=== PATIENT | female | born 1955 | race Caucasian/White ===

== ENCOUNTER 2017-02-28 08:32 | Inpatient (IN) | payer BC ==
--- NOTE | 2017-02-28 08:43 | DR.DIZZY ---
HPI - Time seen Time seen: 08:39 - HPI Comment HPI Comment: PATIENT WAS UP 06:00 AM AND WAS FINE. THEN BELOW SYMTOMS STARTED. CURRENTLY. STILL HAVING DYSARTHRIA. DENIES FEVER. HISTORY MVP. NO HTN. - Complaint Chief Complaint Doctor Comments: DIZZINESS, DIFFICULTY SPEAKING, SLIGHT ATAXIA AND DECREASE DEPTH PERCEPTION SINCE 07:15 AM TODAY. - Nurses Notes Reviewed Nurses Notes Review: Yes - Source History Provided: Patient, Family Member - Mode of Arrival Mode of Arrival: Ambulatory - Timing Came on: Suddenly - Duration Duration: Constant Duration: Hours - Location of Weakness Weakness Location: None - Context Onset: With light exertion Does pt take pot. toxic medication?: No History of: None Stroke Symptoms: Ataxia, Dizziness. denies: Aphasia (DYSARTHRIA) - Severity Severity: Normal activity level - Modifying factors Worsens: Nothing - Associated signs and symptoms Associated Signs and Symptoms: Imbalance, Difficult Speech ROS - Review of Systems Constitutional: Weakness, Fatigue. negative: Chills, Diaphoresis, Fever, Malaise, Loss of Appetite Eyes: negative: Eye Pain, Blurred Vision, Tearing, Discharge, Photophobia, Diplopia ENTM: negative: Ear Pain, Nose Discharge, Nose Congestion, Throat Pain Respiratoy: No Symptoms Reported. negative: Productive Cough, Non-Productive Cough, Short of Breath, Wheezing, Hemoptysis Cardiovascular: No Symptoms Reported. negative: Chest Pain, Edema, Palpitations , Syncope Gastrointestinal/Abdominal: Abdominal Pain. negative: Constipation, Diarrhea, Nausea, Vomiting Genitourinary: No Symptoms Reported. negative: Dysuria, Frequency, Hematuria Neurological: Weakness, Dizziness, Speech Problem. negative: Headache Musculoskeletal: No Symptoms Reported. negative: Back Pain, Muscle Pain, Neck Pain, Neck Integumentary: No Symptoms Reported. negative: Change in Color Hematologic/Lymphatic: No Symptoms Reported Endocrine: No Symptoms Reported. negative: Flushing, Increased Thirst, Increased Urine Psychiatric: negative: Anxiety All Other Systems: Reviewed and Negative PE - Vital Signs Vitals: Temperature 97 F Pulse Rate [Right Brachial] 61 Pulse Rate 60 Respiratory Rate 16 Blood Pressure [Right Arm] 114/55 Blood Pressure 130/63 O2 Sat by Pulse Oximetry 98 - General Limitations: Other (DYSARTHRIA) General Appearance: Alert, Anxious, Other (NO ACUTE RESPIRATORY DISTRESS.) - Head Head Exam: Normal Inspection - Eyes Eye exam: PERRL, EOMI. negative: Scleral Icterus, Conjunctival Injection, Nystagmus, Miosis, Mydrasis, Periorbital Swelling, Periorbital Tenderness Pupils: Regular, Round: Bilateral, Reactive: Bilateral Sclera/Conjunctival: Normal Inspection: Bilateral - ENT ENT Exam: Normal External Ear Exam - Neck Neck Exam: Normal Inspection, Full ROM, Trachea Midline. negative: Tenderness, Meningismus, Lymphadenopathy, Thyromegaly - Chest Chest Inspection: Normal Inspection, Symmetric Chest Wall Rise. negative: Tenderness, Rash - Respiratory Respiratory Exam: Normal Lung Sounds Bilat. negative: Accessory Muscle Use, Chest Wall Tenderness, Respiratory Distress Respiratory Exam: Bilateral Rhonchi, Lower Rhonchi - Cardiovascular Cardiovascular Exam: Regular Rate, Normal Rhythm, Normal Heart Sounds, +S1, + S2. negative: Systolic Murmur, Diastolic Murmur, Rubs, Gallop, JVD, +S3, +S4 - Abdominal Exam Abdominal Exam: Normal Bowel Sounds, Soft. negative: Tenderness - Rectal Rectal Exam: Deferred - Extremeties Extremities Exam: Normal Inspection, Full ROM. negative: Tenderness, Edema - Back Back Exam: Normal Inspection, Full ROM. negative: Tenderness - Neurologic Neurological Exam: Alert, Oriented X3, CN II-XII Intact, Reflexes Normal. negative: Motor Sensory Deficit Patient Oriented To: Person, Place, Time Speech: Expressive Aphasia Cranial Nerve Exam: EOM Function (II, III, IV, ): Normal, Facial Sensation (V) : Normal, Facial Palsy (VII): Normal, Gag reflex (XI): Normal, Spinal Accessory Function (XI): Normal, Tongue Deviation: Normal Cerebellar Function: Finger to Nose: Normal, Heel to [place]: Normal Motor Strength - LUE: 5/5 Motor Strength - RUE: 5/5 Motor Strength - LLE: 5/5 Motor Strength - RLE: 5/5 Upper Motor Neuron Exam: Babinski Sign: Normal Sensory Exam Upper Extremity: Light Touch: Normal Sensory Exam Lower Extremity: Light Touch: Normal DTR: achilles tendon (L): 4+, achilles tendon (R): 4+, bicep (L): 4+, bicep (R) : 4+, Patellar (L): 4+, patellar (R): 4+ - Psychiatric Psychiatric Exam: Anxious - Skin Skin Exam: Normal Color [facility] - Additional Information Additional Information Obtained From: Family - Differential Diagnosis Differential Diagnosis: CVA, Myocardial Infarction (DYSARTHRIA), TIA Course - Treatment Treatment: SEE ORDERS. SEE CT AND MRI/MRA REPORT. - Consultation Consultation Comments: TELEMEDICINE ACTIVATED, DR. RICO, NEUROLOGIST EVALUATED PATIENT. SHE CAN STAY HERE OR GO TO THEIR ED IN [place]. PATIENT SAID SHE WILL STAY HERE IN [facility]. SPOKE WITH DR. JOHNSON FOR NEURO CONSULT. DR. ORTIZ WILL ADMIT PATIENT. - Education/Counseling Education/Counseling: Patient, Family, Education Educated On: Diagnosis ROR - Labs Reviewed Laboratory Results Reviewed?: Yes Result Diagrams: 02/28/17 08:52 02/28/17 08:52 Laboratory: WBC 5.1 X10^3/uL (3.6-10.0) 02/28/17 08:52 RBC 4.67 X10^6/uL (3.5-5.4) 02/28/17 08:52 Hgb 13.9 g/dL (12.0-16.0) 02/28/17 08:52 Hct 40.9 % (36.0-47.0) 02/28/17 08:52 MCV 87.7 fL (80.0-100.0) 02/28/17 08:52 MCH 29.9 pg (27.0-34.0) 02/28/17 08:52 MCHC 34.1 g/dL (33.0-35.0) 02/28/17 08:52 RDW 12.7 % (11.6-16.5) 02/28/17 08:52 Plt Count 220 X10^3/uL (150.0-450.0) 02/28/17 08:52 MPV 9.0 fL (7.4-11.0) 02/28/17 08:52 Neut % 53.8 % (42.0-75.0) 02/28/17 08:52 Lymph % 32.4 % (21.0-51.0) 02/28/17 08:52 Calloway % 9.3 % (0.0-13.0) 02/28/17 08:52 Eos % 3.0 % (0.9-2.9) H 02/28/17 08:52 Baso % 1.5 % (0.2-1.0) H 02/28/17 08:52 Neut # 2.7 x10^3/uL (2.2-4.8) 02/28/17 08:52 Lymph # 1.7 X10^3/uL (1.3-2.9) 02/28/17 08:52 [place]ay # 0.5 x10^3/uL (0.3-0.8) 02/28/17 08:52 Eos # 0.2 x10^3/uL (0.0-0.2) 02/28/17 08:52 Baso # 0.1 X10^3/uL (0.0-0.1) 02/28/17 08:52 Absolute Nucleated RBC 0.1 /100WBC 02/28/17 08:52 INR Target Range - 02/28/17 08:52 INR 1.00 (0.8-1.3) 02/28/17 08:52 PTT 29.8 SECONDS (22.9-36.5) 02/28/17 08:52 PTT Comment - 02/28/17 08:52 Fibrinogen 256 mg/dL (239-489) 02/28/17 08:52 Sodium 144 mmol/L (136-145) 02/28/17 08:52 Corrected Sodium TNP 02/28/17 08:52 Potassium 4.0 mmol/L (3.5-5.1) 02/28/17 08:52 Chloride 108 mmol/L (98-107) H 02/28/17 08:52 Carbon Dioxide 25.1 mmol/L (21-32) 02/28/17 08:52 BUN 13 mg/dL (7-18) 02/28/17 08:52 Creatinine 0.90 mg/dL (0.55-1.02) 02/28/17 08:52 Est GFR (MDRD) Af Amer > 60 (>60) 02/28/17 08:52 Est GFR (MDRD) Non-Af > 60 (>60) 02/28/17 08:52 Glucose 98 mg/dL (65-99) 02/28/17 08:52 Calcium 8.9 mg/dL (8.5-10.1) 02/28/17 08:52 Corrected Calcium TNP 02/28/17 08:52 Total Bilirubin 0.40 mg/dL (0.2-1.0) 02/28/17 08:52 AST 22 Units/L (15-37) 02/28/17 08:52 ALT 29 Units/L (12-78) 02/28/17 08:52 Alkaline Phosphatase 41 Units/L (46-116) L 02/28/17 08:52 Creatine Kinase 70 Units/L (26-192) 02/28/17 21:26 CK-MB (CK-2) < 1.0 ng/mL (0-4.0) 02/28/17 21:26 CK/CKMB % Calc 1.4 % (<4) 02/28/17 21:26 Troponin I < 0.02 ng/mL (0-1.5) 02/28/17 21:26 B-Natriuretic Peptide 96.5 pg/mL (0-79) H 02/28/17 08:52 Total Protein 7.3 g/dL (6.4-8.2) 02/28/17 08:52 Albumin 4.1 g/dL (3.4-5.0) 02/28/17 08:52 Globulin 3.2 g/dL (2.5-4.5) 02/28/17 08:52 Albumin/Globulin Ratio 1.3 Ratio (1.1-2.1) 02/28/17 08:52 Triglycerides 159 mg/dL (0-150) H 02/28/17 08:52 Cholesterol 207 mg/dL (0-200) H 02/28/17 08:52 LDL Cholesterol, Calc 113 mg/dL (0-100) H 02/28/17 08:52 HDL Cholesterol 62 mg/dL (40-60) H 02/28/17 08:52 Cholesterol/HDL Ratio 3.3 (0.0-5.0) 02/28/17 08:52 Amylase 36 Units/L (25-115) 02/28/17 08:25 Lipase 93 Units/L (73-393) 02/28/17 08:25 Specimen Type Clean catch urine 02/28/17 09:31 Urine Color Straw (YELLOW) 02/28/17 09:31 Urine Appearance Clear (CLEAR) 02/28/17 09:31 Urine pH 7.0 (5.0 - 8.0) 02/28/17 09:31 Ur Specific [place] 1.005 (1.000-1.030) 02/28/17 09:31 Urine Protein Negative (NEGATIVE) 02/28/17 09:31 Urine Glucose (UA) Negative (NEGATIVE) 02/28/17 09:31 Urine Ketones Negative (NEGATIVE) 02/28/17 09:31 Urine Occult Blood Negative (NEGATIVE) 02/28/17 09:31 Urine Nitrite Negative (NEGATIVE) 02/28/17 09:31 Urine Bilirubin Negative (NEGATIVE) 02/28/17 09:31 Urine Urobilinogen Normal (NORMAL) 02/28/17 09:31 Ur Leukocyte Esterase Negative (NEGATIVE) 02/28/17 09:31 Urinalysis Comment QNS 02/28/17 09:31 - XRAY XRAY Interpreted by: Radiologist XRAY Findings: REPORT DISCUSS WITH PATIENT AND HER FAMILY. - EKG Rhythm: NSR (EKG NOTED) - Diagnosis Discharge Problem: Dysarthria, Basilar artery aneurysm TIA (transient ischemic attack) Qualifiers: Transient cerebral ischemia type: unspecified Qualified Code(s): G45.9 - Transient cerebral ischemic attack, unspecified - Discharge Plan Disposition: ADMITTED INPATIENT Condition: Stable - Follow ups/Referrals - Instructions
[2017-02-28 08:53] VITALS: BMI 23.0
--- NOTE | 2017-02-28 08:56 | CT ---
HISTORY: Dizzy, difficulty speaking, unsteady gait Study: CT brain without contrast Comparison: No priors Technique: Multiple axial images of the brain were obtained from the skull base to the vertex without administr ation of IV contrast. Coronal and sagittal images are also reviewed. Dose reduction techniques utili zed automatic exposure control. Findings: No acute intraparenchymal hemorrhage or mass can be identified. No extra-axial fluid collections ar e seen. No alteration in the attenuation of the brain parenchyma can be identified to suggest acute or subacute ischemic change. The ventricular system is symmetric and nondilated. The extracranial structures are grossly unremarkable. IMPRESSION: 1. No acute intracranial process can be identified. Reported By:
[2017-02-28 09:01] LABS: BASOPHILS # (AUTO) 0.1 X10^3/uL (0.0-0.1); BASOPHILS % (AUTO) 1.5 % (0.2-1.0); EOSINOPHILS # (AUTO) 0.2 x10^3/uL (0.0-0.2); HEMATOCRIT 40.9 % (36.0-47.0); HEMOGLOBIN 13.9 g/dL (12.0-16.0); LYMPHOCYTES # (AUTO) 1.7 X10^3/uL (1.3-2.9); LYMPHOCYTES % (AUTO) 32.4 % (21.0-51.0); MEAN CORPUSCULAR HEMOGLOBIN 29.9 pg (27.0-34.0); MEAN CORPUSCULAR HGB CONC 34.1 g/dL (33.0-35.0); MEAN CORPUSCULAR VOLUME 87.7 fL (80.0-100.0); MONOCYTES # (AUTO) 0.5 x10^3/uL (0.3-0.8); MONOCYTES % (AUTO) 9.3 % (0.0-13.0); NEUTROPHILS # (AUTO) 2.7 x10^3/uL (2.2-4.8); NEUTROPHILS % (AUTO) 53.8 % (42.0-75.0); PLATELET COUNT 220 X10^3/uL (150.0-450.0); RED BLOOD COUNT 4.67 X10^6/uL (3.5-5.4); RED CELL DISTRIBUTION WIDTH 12.7 % (11.6-16.5); WHITE BLOOD COUNT 5.1 X10^3/uL (3.6-10.0)
[2017-02-28] MEDS ORDERED: ASPIRIN 81 MG CHEWTAB ONE (09:04)
--- NOTE | 2017-02-28 09:05 | RAD ---
HISTORY: Chest pain. Study: Single-view chest. Comparison: None. Findings: The trachea is midline. The cardiac silhouette is within normal limits. The lungs are clear withou t focal infiltrate or effusion. The bony thorax is unremarkable. IMPRESSION: No acute cardiopulmonary disease. Reported By:
[2017-02-28] MEDS: ASPIRIN PO SCH (09:08)
[2017-02-28 09:25] LABS: B-TYPE NATRIURETIC PEPTIDE 96.5 pg/mL (0-79); CHOL/HDL RATIO 3.3 (0.0-5.0)
[2017-02-28 09:30] LABS: BLOOD UREA NITROGEN 13 mg/dL (7-18); CALCIUM 8.9 mg/dL (8.5-10.1); CARBON DIOXIDE 25.1 mmol/L (21-32); CHLORIDE 108 mmol/L (98-107); GLUCOSE 98 mg/dL (65-99); SODIUM 144 mmol/L (136-145); TROPONIN I < 0.02 ng/mL (0-1.5); eGFR BLACK RACES > 60 (>60); eGFR NON BLACK RACES > 60 (>60)
[2017-02-28 09:35] LABS: ALANINE AMINOTRANSFERASE 29 Units/L (12-78); ALBUMIN 4.1 g/dL (3.4-5.0); ALKALINE PHOSPHATASE 41 Units/L (46-116); ASPARTATE AMINO TRANSFERASE 22 Units/L (15-37); CKMB % 1.2 % (<4); CREATINE KINASE 83 Units/L (26-192); TOTAL PROTEIN 7.3 g/dL (6.4-8.2)
[2017-02-28] MEDS ORDERED: PEPCID 20 MG IV PREMIX* 20 MG/50 ML BAG IV ONE ×2 (10:14→12:18)
[2017-02-28 10:18] LABS: BILIRUBIN,URINE NEGATIVE (NEGATIVE); BLOOD/HEMOGLOBIN,URINE NEGATIVE (NEGATIVE); GLUCOSE, URINE NEGATIVE (NEGATIVE); KETONES,URINE NEGATIVE (NEGATIVE); LEUKOCYTE ESTERASE ,URINE NEGATIVE (NEGATIVE); NITRITES,URINE NEGATIVE (NEGATIVE); PROTEIN,URINE NEGATIVE (NEGATIVE); UROBILINOGEN,URINE NORMAL (NORMAL)
[2017-02-28 10:19] LABS: APPEARANCE,URINE CLEAR (CLEAR); COLOR,URINE STRAW (YELLOW)
--- NOTE | 2017-02-28 11:29 | MRI ---
STUDY: MRI OF THE BRAIN WITHOUT GADOLINIUM History: TIA. Dizziness. Difficulty speaking. Comparison: Head CT dated February 28, 2017. Technique: Multiplanar multi-sequence MRI of the brain was obtained utilizing standard departmental protocol. Sagittal and axial T1, axial T2, FLAIR, diffusion (DWI/ADC) images through the brain were performed. Findings: The sulci, cisterns, and ventricles are age appropriate. There is no evidence of acute ter ritorial infarction, hemorrhage, mass, mass effect or midline shift. There are no abnormal intra-axi al or extra-axial fluid collections. The major intracranial vascular flow voids are intact. IMPRESSION: 1. No evidence of acute intracranial abnormality. Reported By:
--- NOTE | 2017-02-28 11:34 | MRI ---
STUDY: MRA OF THE BRAIN HISTORY: TIA, dizziness, difficulty speaking. Comparison: Head CT from February 28, 2017. Technique: 3D [id number] imaging of the intracranial circulation was performed. Findings: 3D [id number] MRA examination shows normal flow related enhancement in the major intracranial ar teries. There is no evidence of hemodynamically significant stenosis. Note is made of a somewhat bul bous configuration of the basilar tip measuring 3 mm, possibly representing a small aneurysm. Both p osterior cerebral arteries and superior cerebellar arteries are incorporated within this structure. Posterior communicating arteries are not identified. The right vertebral artery is dominant. IMPRESSION: 1. Bulbous configuration of the basilar tip, possibly representing a 3 mm basilar tip aneurysm. Reported By:
--- NOTE | 2017-02-28 12:39 | VAS ---
HISTORY: Dizziness, TIA Study: Carotid sonogram Comparison: None Technique: Multiple pinto scale and color flow Doppler images of the right and left carotid arterial system were obtained. The vertebral arterial system was evaluated as well. Findings: Normal color flow Doppler is seen throughout the right and left carotid arterial system. No hemodyn amically significant stenosis is seen based on velocity criteria. The right and left vertebral anay genaro demonstrate antegrade flow. IMPRESSION: 1. No hemodynamically significant stenosis. Reported By:
[2017-02-28] MEDS ORDERED: NS 1/2 1000 ML IV 1,000 ML IV ONE (13:16)
[2017-02-28] MEDS ORDERED: LEVSIN/MAALOX/LIDOC VISC PO PRN (13:23)
[2017-02-28 13:39] LABS: AMYLASE 36 Units/L (25-115); LIPASE 93 Units/L (73-393)
[2017-02-28] MEDS: NS 1/2 1000 ML IV 1,000 ML IV SCH (13:42)
[2017-02-28] MEDS: PROTONIX INJ 40 MG VIAL IVP SCH (14:19)
[2017-02-28] MEDS: PLAVIX PO SCH (14:19)
[2017-02-28 16:05] LABS: CKMB % 1.6 % (<4); CREATINE KINASE 71 Units/L (26-192); CREATINE KINASE MB 1.1 ng/mL (0-4.0); TROPONIN I < 0.02 ng/mL (0-1.5)
--- NOTE | 2017-02-28 18:02 | DR.H&P ---
H&P - History & Physical for Day of: H&P Date: 02/28/17 - Chief Complaint Chief Complaint: sudden onset of weakness, impaired speech - Allergies Allergies/Adverse Reactions: Allergies Allergy/AdvReac Type Severity Reaction Status Date / Time No Known Drug Allergy Allergy Verified 02/28/17 08:39 - History of Present Illness History of Present Illness: 61 WF ER ADMIT AFTER PRESENTING WITH CO SUDDEN ONSET OF WEAKNESS, IMPAIRED SPEECH. PT STATES SHE HAD SEVERE EPIGASTRIC PAIN QUALITY CONTROL CHEMIST AND TOOK NEXIUM, GI COCKTAIL AND ZANTAC PRIOR TO ARRIVAL WITH SOME RELEIF IN ABOMDINAL PAIN. PT HAD CT HEAD IN ED NEGATIVE FOR ACUTE FINDINGS. PLAN TO ADMIT FOR EVALUATION OF TIA VS CVA, ADDITIONAL EVALUATION OF EPIGASTRIC PAIN. CTA CAROTIDS, MRI/MRA. ADMIT ICU, CARDIAC MONITORING - Past Medical History Past Medical History: Arthritis, GERD - Past Surgical History Surgical History: Hysterectomy, Other - Family History Family Medical History: Cancer - Social History Does patient currently use any type of tobacco product: No Have you used tobacco products in the last 12 months: No Type of Tobacco Use: None Does any household member use tobacco: No Alcohol Use: Rarely Drug Use: None - Medications Home Medications: Esomeprazole Magnesium [NEXIUM 40 MG *] 1 cap PO DAILY 02/28/17 [History Confirmed 02/28/17] Famotidine [Famotidine 20 mg] 1 tab PO BID 02/28/17 [History Confirmed 02/28/17] Gi Cocktail [LEVSIN/Maalox/Lidoc Visc (GI COCKTAIL) *] 15 ml PO Q4HR PRN [History Confirmed 02/28/17] Ranitidine HCl [Ranitidine [address]] 1 tab PO BID 02/28/17 [History Confirmed 02/28/17] - Review of Systems Constitutional: Weakness ENT: No Symptoms Reported Respiratory: No Symptoms Reported Cardiovascular: No Symptoms Reported Gastrointestinal: Abdominal Pain Genitourinary: No Symptoms Reported Musculoskeletal: Neck Pain Skin: No Symptoms Reported Neurological: Weakness, Change in Speech (IMPAIRED SPEECH ON ARRIVAL TO ED, RESOLVED ON ADMISSION TO ICU) - Physical Exam Vital Signs: Temperature 98 F Pulse Rate [Right Brachial] 59 Respiratory Rate 19 Blood Pressure [Right Arm] 98/46 O2 Sat by Pulse Oximetry 95 Oriented: Normal Eyes: Normal Ear: Normal Nose: Normal Throat: Normal Respiratory: Clear Throughout Cardiovascular: Normal : Normal Auscultation: Bowel Sounds: Normal Palpation: Normal Tenderness: RUQ, Epigastric Skin: Decreased Turgur Musculoskeletal: Tender (LOCALIZED C SPINE TENDERNESS) Psychiatric: Anxiety Speech Pattern: Clear, Appropriate - Assessment/Plan (1) TIA (transient ischemic attack) Qualifiers: Transient cerebral ischemia type: T Status: Acute Plan: CARDIAC MONITORING, BP AND LIPID CONTROL. FLP AM, MRI, MRA NO ACUTE CVA, . NEURO CHECKS, CAROTID US. REPEAT AM LABS (2) Weakness Status: Acute (3) Epigastric abdominal pain Status: Acute Plan: PPI, GI COCKTAIL, AMYLASE LIPASE. 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
--- NOTE | 2017-02-28 18:37 | DR.CONSULT ---
Consult - Consultation for Day of: Date: 02/28/17 - Chief Complaint Chief Complaint: Acute onset speech abnormality, slurred speech. - Allergies Allergies/Adverse Reactions: Allergies Allergy/AdvReac Type Severity Reaction Status Date / Time No Known Drug Allergy Allergy Verified 02/28/17 08:39 - History of Present Illness History of Present Illness: Patient is 61-year-old female who was seen and examined by neurology because of acute onset of difficulty with her speech and incoordination with the right hand. Patient was trying to say something but the words would not come out of her mouth. She also had difficulty with her right hand in reaching out to the objects. All these symptoms started around 11 :00 today in the lasted for more than an hour. Patient arrived at ER around this time. By the time she arrived at the ER there was some improvement in her symptoms but she still had some symptoms. Patients speech has markedly improved , her naming is intact. Her comprehension is also intact. She can repeat the words as well. Her strength in the right hand has also improved. Patient is not having any complaints at this point. She had an MRI of the brain at the hospital which did not show any acute ischemic insult. - Past Medical History Past Medical History: Arthritis, GERD - Past Surgical History Surgical History: Hysterectomy, Other - Family History Family Medical History: Cancer - Social History Does patient currently use any type of tobacco product: No Have you used tobacco products in the last 12 months: No Type of Tobacco Use: None Does any household member use tobacco: No Alcohol Use: Rarely Drug Use: None - Medications Home Medications: Esomeprazole Magnesium [NEXIUM 40 MG *] 1 cap PO DAILY 02/28/17 [History Confirmed 02/28/17] Famotidine [Famotidine 20 mg] 1 tab PO BID 02/28/17 [History Confirmed 02/28/17] Gi Cocktail [LEVSIN/Maalox/Lidoc Visc (GI COCKTAIL) *] 15 ml PO Q4HR PRN [History Confirmed 02/28/17] Ranitidine HCl [Ranitidine [address]] 1 tab PO BID 02/28/17 [History Confirmed 02/28/17] - Review of Systems Constitutional: No Symptoms Reported Eyes: No Symptoms Reported ENT: No Symptoms Reported Respiratory: No Symptoms Reported Cardiovascular: No Symptoms Reported Gastrointestinal: No Symptoms Reported Genitourinary: No Symptoms Reported Musculoskeletal: No Symptoms Reported Skin: No Symptoms Reported Neurological: See HPI - Physical Exam Vital Signs: Temperature 98 F Pulse Rate [Right Brachial] 61 Respiratory Rate 18 Blood Pressure [Right Arm] 97/48 O2 Sat by Pulse Oximetry 95 Oriented: Normal, Time, Person, Place Eyes: Normal Ear: Normal Nose: Normal Throat: Normal Respiratory: Clear Throughout Cardiovascular: Normal : Normal Auscultation: Bowel Sounds: Normal Palpation: Normal Tenderness: Normal Skin: Normal Musculoskeletal: Normal Psychiatric: Normal, Other (Neurological examination:cognitive status; patient is awake alert oriented in time place and person. Speech : it is fluent, naming is intact, comprehension is intact. Repetition is also intact. Cranial nerve examination: second cranial nerve: visual simpson are intact on confrontation. Third fourth and sixth: extraocular movements are full without any nystagmus. Pupils are 3.5 mm in size around equal and reactive to light. Fifth cranial nerve; Facial sensations are intact bilaterally. Seventh cranial nerve: facial symmetry is intact bilaterally.: Eighth cranial nerve:hearing is intact bilaterally.9-10th cranial nerve:palate is symmetrical bilaterally. 11th cranial nerve: shoulder shrug is equal and symmetrical bilaterally. 12th cranial nerve:tongue is in midline. Coordination: finger to nose rapid alternative movements are intact. Gait was not tested. Motor system examination: tone is normal, strength is 5 over 5 in upper and lower extremities equal and symmetrical. DTRs: +1 equal and symmetrical in upper and lower extremities. Plantars are flexor bilaterally. Sensory system examination : touch temperature, pinprick sensations are intact equally and symmetrically in upper and lower extremities.) Mood Description: Calm, Happy Affect: Normal Speech Pattern: Clear - Plan Plan: Patient was seen and examined because of signs and symptoms raising suspicion for TIA. At this point it appears that patient has cleared up. Her neurological examination is nonfocal. Her MRI of the brain did not show any sign of acute ischemic event. The MRA of the brain showed 3 mm aneurysm at the tip of the basilar artery. To clarify this we will do CT angiogram tomorrow. I counseled the patient on going [id number] exercises on a regular basis. I also counseled the patient on dietary modification, at night less in fact and more in fiber. I'm recommending 81 mg of aspirin daily. The rest of the stroke workup is in progress. We will follow-up.
[2017-02-28] MEDS: PEPCID 20 MG IV PREMIX* 20 MG/50 ML BAG IV SCH (20:01)
[2017-02-28] MEDS: NORCO 10/325 TAB PO PRN (21:42)
[2017-02-28 22:12] LABS: CKMB % 1.4 % (<4); CREATINE KINASE 70 Units/L (26-192); CREATINE KINASE MB < 1.0 ng/mL (0-4.0); TROPONIN I < 0.02 ng/mL (0-1.5)
[2017-02-28] MEDS ORDERED: RESTORIL CAP 15 MG PO PRN (23:45)
[2017-03-01 05:31] LABS: BASOPHILS % (AUTO) 0.8 % (0.2-1.0); EOSINOPHILS # (AUTO) 0.2 x10^3/uL (0.0-0.2); EOSINOPHILS % (AUTO) 3.9 % (0.9-2.9); HEMATOCRIT 38.1 % (36.0-47.0); HEMOGLOBIN 13.2 g/dL (12.0-16.0); LYMPHOCYTES # (AUTO) 2.4 X10^3/uL (1.3-2.9); MEAN CORPUSCULAR HEMOGLOBIN 30.5 pg (27.0-34.0); MEAN CORPUSCULAR HGB CONC 34.6 g/dL (33.0-35.0); MEAN PLATELET VOLUME 9.4 fL (7.4-11.0); MONOCYTES # (AUTO) 0.4 x10^3/uL (0.3-0.8); MONOCYTES % (AUTO) 7.3 % (0.0-13.0); NEUTROPHILS # (AUTO) 2.5 x10^3/uL (2.2-4.8); PLATELET COUNT 210 X10^3/uL (150.0-450.0); RED BLOOD COUNT 4.33 X10^6/uL (3.5-5.4); RED CELL DISTRIBUTION WIDTH 12.5 % (11.6-16.5); WHITE BLOOD COUNT 5.6 X10^3/uL (3.6-10.0)
[2017-03-01 05:46] LABS: ALANINE AMINOTRANSFERASE 27 Units/L (12-78); ALBUMIN 3.5 g/dL (3.4-5.0); ALKALINE PHOSPHATASE 42 Units/L (46-116); ASPARTATE AMINO TRANSFERASE 18 Units/L (15-37); BLOOD UREA NITROGEN 14 mg/dL (7-18); CALCIUM 8.6 mg/dL (8.5-10.1); CARBON DIOXIDE 24.1 mmol/L (21-32); CHLORIDE 109 mmol/L (98-107); CHOL/HDL RATIO 3.8 (0.0-5.0); CHOLESTEROL 178 mg/dL (0-200); CREATININE 1.05 mg/dL (0.55-1.02); GLUCOSE 98 mg/dL (65-99); HDL CHOLESTEROL 47 mg/dL (40-60); SODIUM 144 mmol/L (136-145); TOTAL PROTEIN 6.5 g/dL (6.4-8.2); TRIGLYCERIDES 167 mg/dL (0-150); eGFR BLACK RACES > 60 (>60); eGFR NON BLACK RACES 56 (>60)
--- NOTE | 2017-03-01 07:14 | US ---
HISTORY: Right upper quadrant pain , nausea, vomiting, epigastric pain Study: Right upper quadrant abdominal ultrasound Comparison: No priors Technique: Multiple pinto scale and color flow Doppler images of the right upper quadrant were obtain ed. Findings: The liver is normal in echotexture and size. No focal intraparenchymal mass or intrahepatic biliary ductal dilatation can be observed. The gallbladder fails to demonstrate evidence for cholelithiasi s or layering sludge. The common bile duct is unremarkable measuring 4 millimeters. No pericholecy stic fluid is seen. There is mild gallbladder wall thickening. The gallbladder wall measures 5 corie meters. The right kidney appears normal in size without focal parenchymal mass or nephrolithiasis. The righ t kidney measurers 4.2 x 6.2 x 8.2 centimeters. No hydronephrosis or perirenal fluid can be observe d. The pancreas is normal. IMPRESSION: Mild gallbladder wall thickening. No gallstone is seen. Remainder of the examination is unremarkabl e. Reported By:
[2017-03-01] MEDS: PROTONIX INJ 40 MG VIAL IVP SCH (09:04)
[2017-03-01] MEDS: ASPIRIN PO SCH (09:04)
[2017-03-01] MEDS: PEPCID 20 MG IV PREMIX* 20 MG/50 ML BAG IV SCH (09:04)
[2017-03-01] MEDS: PLAVIX PO SCH (09:05)
--- NOTE | 2017-03-01 11:46 | NM ---
HISTORY: Chest pain. Study: Nuclear medicine HIDA scan with ejection fraction Comparison: Gallbladder ultrasound from March 01, 2017. Technique: Multiple scintigraphic images of the abdomen were obtained the intravenous administration of 5.6 mCi of technetium labeled Choletec. Following distention of the gallbladder with radiotracer, 8 oz of Ensure was administered orally. A n estimated gallbladder ejection fraction was calculated based on the resulting physiologic response . Findings: Homogeneous uptake of radiotracer is seen throughout the liver. The intrabiliary ductal system is o bserved normally. The common hepatic and common bile duct are unremarkable with normal biliary-deepti l transit. The gallbladder is observed to fill normally. After the oral administration of Ensure, a gallbladder ejection fraction of 14.8% (normal > 35%) is observed. IMPRESSION: 1. Normal hepatobiliary imaging scan. 2. Abnormal gallbladder ejection fraction of 14.8%. Clinical correlation for cholecystitis or gallb ladder dyskinesia is recommended. Reported By:
[2017-03-01] MEDS: NORCO 10/325 TAB PO PRN (12:24)
[2017-03-01] MEDS ORDERED: NS 100 ML IV 100 ML IV ONE (12:28)
[2017-03-01] MEDS ORDERED: PREVNAR 13 IM ONE (16:20)
--- NOTE | 2017-03-01 16:20 | CT ---
CT ANGIOGRAPHY OF THE HEAD CLINICAL HISTORY: 61-year-old female with dizziness and difficulty speaking. COMPARISON: MR brain February 28, 2017. CT head February 28, 2017. TECHNIQUE: Multiple axial CT images were obtained from the skull base to the cranial vertex followi ng the uneventful intravenous administration contrast. MIP and 3D reformatted images of the [place] o f [facility] were obtained at an independent workstation. FINDINGS: Noncontrasted images demonstrate no evidence of abnormal intra- or extra-axial fluid colle ctions, midline shift, or mass effect. Pederson-white differentiation is maintained. The ventricular sy stem is normal in size and morphology. The basilar cisterns are normal. Post contrast images demonstrate no evidence of abnormal intracranial enhancement. Left dominant flakita tebral arterial system. The basilar artery gives off normal superior cerebellar and posterior cerebr al arteries. There are small caliber posterior communicating arteries bilaterally. The internal franz tid arteries are normal from their distal cervical segments to the carotid terminus. The middle cere bral arteries and anterior cerebral arteries are normal. There is a small caliber anterior communica ting artery. There is normal opacification of the major dural venous sinuses. IMPRESSION: Intact anterior and posterior circulations without dissection, major branch occlusion, aneurysm, or vascular malformation. Reported By:
[2017-03-01] MEDS: NS 1/2 1000 ML IV 1,000 ML IV SCH (17:06)
--- NOTE | 2017-03-01 18:26 | PCM.PROG ---
Progress Note - Progress Note for Day of Date: 03/01/17 - Subjective Subjective: Patient is doing fine. Her symptoms have subsided. She feels back to her normal self. She has no other complaints at this point. - Past Medical Family Social History Allergies: Allergies No Known Drug Allergy Allergy (Verified 02/28/17 08:39) - Review of Systems ROS: No change since H&P - Vital Signs and I&O's Vital Signs: Temperature 98.9 F Pulse Rate [Right Brachial] 63 Respiratory Rate 20 Blood Pressure [Right Arm] 100/60 O2 Sat by Pulse Oximetry 95 Intake and Output: Intake & Output 02/27/17 02/28/17 03/01/17 03/02/17 11:59 11:59 11:59 11:59 Intake Total 858 350 Output Total 500 Balance 358 350 - Physical Exam Oriented: Normal, Time, Person, Place Eyes: Normal Ear: Normal Nose: Normal Throat: Normal Cardiovascular: Normal : Normal Auscultation: Bowel Sounds: Normal Tenderness: Normal Skin: Normal Musculoskeletal: Normal Psychiatric: Normal, Other (Neurological examination:cognitive status; patient is awake alert oriented in time place and person. Speech : it is fluent, naming is intact, comprehension is intact. Repetition is also intact. Cranial nerve examination: second cranial nerve: visual simpson are intact on confrontation. Third fourth and sixth: extraocular movements are full without any nystagmus. Pupils are 3.5 mm in size around equal and reactive to light. Fifth cranial nerve; Facial sensations are intact bilaterally. Seventh cranial nerve: facial symmetry is intact bilaterally.: Eighth cranial nerve:hearing is intact bilaterally.9-10th cranial nerve:palate is symmetrical bilaterally. 11th cranial nerve: shoulder shrug is equal and symmetrical bilaterally. 12th cranial nerve:tongue is in midline. Coordination: finger to nose rapid alternative movements are intact. Gait was not tested. Motor system examination: tone is normal, strength is 5 over 5 in upper and lower extremities equal and symmetrical. DTRs: +1 equal and symmetrical in upper and lower extremities. Plantars are flexor bilaterally. Sensory system examination : touch temperature, pinprick sensations are intact equally and symmetrically in upper and lower extremities.) Mood Description: Calm Affect: Normal Speech Pattern: Clear, Appropriate - Laboratory and Diagnostics Result Diagrams: 03/01/17 03:30 03/01/17 03:30 Labs: Laboratory WBC 5.6 X10^3/uL (3.6-10.0) 03/01/17 03:30 RBC 4.33 X10^6/uL (3.5-5.4) 03/01/17 03:30 Hgb 13.2 g/dL (12.0-16.0) 03/01/17 03:30 Hct 38.1 % (36.0-47.0) 03/01/17 03:30 MCV 88.0 fL (80.0-100.0) 03/01/17 03:30 MCH 30.5 pg (27.0-34.0) 03/01/17 03:30 MCHC 34.6 g/dL (33.0-35.0) 03/01/17 03:30 RDW 12.5 % (11.6-16.5) 03/01/17 03:30 Plt Count 210 X10^3/uL (150.0-450.0) 03/01/17 03:30 MPV 9.4 fL (7.4-11.0) 03/01/17 03:30 Neut % 45.0 % (42.0-75.0) 03/01/17 03:30 Lymph % 43.0 % (21.0-51.0) 03/01/17 03:30 [place] % 7.3 % (0.0-13.0) 03/01/17 03:30 Eos % 3.9 % (0.9-2.9) H 03/01/17 03:30 Baso % 0.8 % (0.2-1.0) 03/01/17 03:30 Neut # 2.5 x10^3/uL (2.2-4.8) 03/01/17 03:30 Lymph # 2.4 X10^3/uL (1.3-2.9) 03/01/17 03:30 [place] # 0.4 x10^3/uL (0.3-0.8) 03/01/17 03:30 Eos # 0.2 x10^3/uL (0.0-0.2) 03/01/17 03:30 Baso # 0.0 X10^3/uL (0.0-0.1) 03/01/17 03:30 Absolute Nucleated RBC 0.1 /100WBC 03/01/17 03:30 INR Target Range - 02/28/17 08:52 INR 1.00 (0.8-1.3) 02/28/17 08:52 PTT 29.8 SECONDS (22.9-36.5) 02/28/17 08:52 PTT Comment - 02/28/17 08:52 Fibrinogen 256 mg/dL (239-489) 02/28/17 08:52 Sodium 144 mmol/L (136-145) 03/01/17 03:30 Corrected Sodium TNP 03/01/17 03:30 Potassium 4.0 mmol/L (3.5-5.1) 03/01/17 03:30 Chloride 109 mmol/L (98-107) H 03/01/17 03:30 Carbon Dioxide 24.1 mmol/L (21-32) 03/01/17 03:30 BUN 14 mg/dL (7-18) 03/01/17 03:30 Creatinine 1.05 mg/dL (0.55-1.02) H 03/01/17 03:30 Est GFR (MDRD) Af Amer > 60 (>60) 03/01/17 03:30 Est GFR (MDRD) Non-Af 56 (>60) L 03/01/17 03:30 Glucose 98 mg/dL (65-99) 03/01/17 03:30 Calcium 8.6 mg/dL (8.5-10.1) 03/01/17 03:30 Corrected Calcium TNP 03/01/17 03:30 Total Bilirubin 0.20 mg/dL (0.2-1.0) 03/01/17 03:30 AST 18 Units/L (15-37) 03/01/17 03:30 ALT 27 Units/L (12-78) 03/01/17 03:30 Alkaline Phosphatase 42 Units/L (46-116) L 03/01/17 03:30 Creatine Kinase 70 Units/L (26-192) 02/28/17 21:26 CK-MB (CK-2) < 1.0 ng/mL (0-4.0) 02/28/17 21:26 CK/CKMB % Calc 1.4 % (<4) 02/28/17 21:26 Troponin I < 0.02 ng/mL (0-1.5) 02/28/17 21:26 B-Natriuretic Peptide 96.5 pg/mL (0-79) H 02/28/17 08:52 Total Protein 6.5 g/dL (6.4-8.2) 03/01/17 03:30 Albumin 3.5 g/dL (3.4-5.0) 03/01/17 03:30 Globulin 3.0 g/dL (2.5-4.5) 03/01/17 03:30 Albumin/Globulin Ratio 1.2 Ratio (1.1-2.1) 03/01/17 03:30 Triglycerides 167 mg/dL (0-150) H 03/01/17 03:30 Cholesterol 178 mg/dL (0-200) 03/01/17 03:30 LDL Cholesterol, Calc 98 mg/dL (0-100) 03/01/17 03:30 HDL Cholesterol 47 mg/dL (40-60) 03/01/17 03:30 Cholesterol/HDL Ratio 3.8 (0.0-5.0) 03/01/17 03:30 Amylase 36 Units/L (25-115) 02/28/17 08:25 Lipase 93 Units/L (73-393) 02/28/17 08:25 Specimen Type Clean catch urine 02/28/17 09:31 Urine Color Straw (YELLOW) 02/28/17 09:31 Urine Appearance Clear (CLEAR) 02/28/17 09:31 Urine pH 7.0 (5.0 - 8.0) 02/28/17 09:31 Ur Specific [place] 1.005 (1.000-1.030) 02/28/17 09:31 Urine Protein Negative (NEGATIVE) 02/28/17 09:31 Urine Glucose (UA) Negative (NEGATIVE) 02/28/17 09:31 Urine Ketones Negative (NEGATIVE) 02/28/17 09:31 Urine Occult Blood Negative (NEGATIVE) 02/28/17 09: Urine Nitrite Negative (NEGATIVE) 02/28/17 09: Urine Bilirubin Negative (NEGATIVE) 02/28/17 09: Urine Urobilinogen Normal (NORMAL) 02/28/17 09:31 Ur Leukocyte Esterase Negative (NEGATIVE) 02/28/17 09:31 Urinalysis Comment QNS 02/28/17 09: - Plan (1) TIA (transient ischemic attack) Status: Acute Qualifiers: Transient cerebral ischemia type: unspecified Qualified Code(s): G45.9 - Transient cerebral ischemic attack, unspecified Plan: Patient is stable neurologically. Her symptoms have subsided. She had CT angiogram of the brain which did not show any intracranial vascular pathology. She had a normal MRI of the brain. At this point I'm recommending continuation of her present management. Patient can be discharged from neurology point of view. Rest of her workup can be done as an outpatient. I am recommending neurology follow-up in a week's time.
[2017-03-02 00:44] VITALS: BP 107/58
== END 2017-03-01 20:00 | disposition home or self-care (01) | DRG 69 ==
LOC: ER 08:40 → ICU 12:45 → OBSVTOIN 12:45 → MED/SURG 03-01 15:10
PROVIDERS: ADMIT Internal Medicine; ATTEND Internal Medicine
DX: G45.8 Other transient cerebral ischemic attacks and related syndromes (principal); I72.5 Aneurysm of other precerebral arteries; R47.1 Dysarthria and anarthria; R10.13 Epigastric pain; R47.81 Slurred speech; R53.1 Weakness; M50.30 Other cervical disc degeneration, unspecified cervical region; R10.11 Right upper quadrant pain; K82.8 Other specified diseases of gallbladder
CPT/HCPCS: 36415; 70450; 70496; 70544; 70551; 71010; 76705; 78227; 80053; 80061; 81003; 82150; 82550; 82553; 83690; 83880; 84484; 85025; 85384; 85610; 85730; 93005; 93010; 93306; 93880; 96365; 96374; 99284; A4222; C9113; S0028

== ENCOUNTER 2017-07-20 18:00 | Emergency (ER) | payer BC ==
[~2017-07-20 18:00] MED LIST changes: -BENADRYL INJ 50 MG VIAL IVP PRN; -DILAUDID INJ IVP PRN; +DIPRIVAN VIAL ONE; -FENTANYL INJ 250 mcg ONE; -MARCAINE 0.25% INJ ONE; +NEOSTIGMINE INJ ONE; +NORCURON INJ 10 MG VIAL ONE; -NS 1000 ML 1,000 ML ONE; -PERCOCET TAB 5/325 MG ONE; -PERCOCET TAB 5/325 MG PO PRN; -PHENERGAN INJ 25 MG IVP PRN; +QUELICIN (OR ANECTINE) ONE; -REGLAN INJ 10 MG VIAL IVP PRN; +ROBINUL ONE; +SUPRANE IN ONE; +TORADOL 30 MG VIAL ONE; +ULTANE GAS IN ONE; +VERSED ONE; -XYLOCAINE 1% and EPINEPHRINE 1:100,000 ONE; -ZOFRAN INJ 4 MG VIAL IVP PRN; +ZOFRAN INJ 4 MG VIAL ONE
[2017-07-20 18:27] VITALS: BP 117/69; BMI 23.8
--- NOTE | 2017-07-20 20:25 | DR.GENAD ---
HPI - PCP Primary Care Physician: SIDNEY MARTINEZ - HPI Comment HPI Comment: HISTORY BELOW. - Complaint/Symptoms Chief Complaint Doctors Comments: LACERATION BACK OF THROAT. PATIENT INTUBATED FOR CHOLECYSTECTOMY TODAY. LACERATION NOTED TONIGHT. UNABLE TO TAKE MEDS OR EAT. NO FEVER. Chief Complaint:: PT HAD HER GALL BLADDER REMOVED AND TODAY AND PT C/O SORE THROAT AND PT HAS A LARGE OPEN AREA TO THE RIGHT OF THE INSIDE OF HER THROAT.. - Nurses notes reviewed Nurses Notes Review: Yes - Source History Provided: Patient - Mode of Arrival Mode of Arrival: Ambulatory - Timing Onset of Chief Complaint: 07/20/17 Came on: Suddenly - Duration Duration: Constant Duration: Hours - Severity Severity: Moderate PMH - PMH Past Medical History: No Past Medical History: Arthritis, GERD Past Surgical History: Yes Surgical History: Cholecystectomy - Family History History of Family Medical Conditions: No Family Medical History: Cancer - Social History Does patient currently use any type of tobacco product: No Have you used tobacco products in the last 12 months: No Type of Tobacco Use: None Does any household member use tobacco: No Alcohol Use: None Do you use any recreational Drugs:: No Lives With: Family Lives Where: Home - infectious screening In the last 2 months have you had wt loss of >10#?: NO Have you had fever, night sweats or hemotysis?: No Have you traveled outside the country in the last 6 months?: No Isolation: Standard ROS - Review of Systems Constitutional: No Symptoms Reported Eyes: No Symptoms Reported ENTM: Mouth Pain (LACERATIONSOFT UPPER RT PALATE.). negative: Ear Pain, Nose Discharge, Nose Congestion Respiratoy: No Symptoms Reported Cardiovascular: No Symptoms Reported Gastrointestinal/Abdominal: Abdominal Pain, Nausea Genitourinary: No Symptoms Reported Neurological: No Symptoms Reported Musculoskeletal: No Symptoms Reported Integumentary: No Symptoms Reported Hematologic/Lymphatic: No Symptoms Reported Endocrine: No Symptoms Reported PE - Vital Signs Vitals: Temperature 98.8 F Pulse Rate 85 Respiratory Rate 20 Blood Pressure [Left Arm] 107/58 Blood Pressure [Right Arm] 100/60 Blood Pressure 117/69 O2 Sat by Pulse Oximetry 92 - General Limitations: No Limitations General Appearance: Alert - Head Head Exam: Normal Inspection - Eyes Eye exam: Normal Appearance - ENT ENT Exam: Normal External Ear Exam External Ear Exam: Normal External Inspection TM/Canal Exam: Bilateral Normal Nose Exam: Normal Nose Exam Mouth Exam: Laceration (SOFT PALATE RT .) Throat Exam: Other (LACERATION RT SOFT PALATE 2 CM.) - Neck Neck Exam: Trachea Midline - Chest Chest Inspection: Symmetric Chest Wall Rise - Respiratory Respiratory Exam: Normal Lung Sounds Bilat Respiratory Exam: Bilateral Clear to Auscultation - Cardiovascular Cardiovascular Exam: Regular Rate, Normal Rhythm, Normal Heart Sounds - Abdominal Exam Abdominal Exam: Normal Bowel Sounds, Soft, Tenderness (AREA OF SURGERY.) - Extremities Extremities Exam: Normal Inspection - Back Back Exam: Normal Inspection - Neurologic Neurological Exam: Alert, Oriented X3 - Psychiatric Psychiatric Exam: Normal Affect, Normal Mood - Skin Skin Exam: Normal Color MDM - Additional Information Additional Information Obtained From: Family - Differential Diagnosis Differential Diagnosis: MOUTH/SOFT PALATE LACERATION, POST CHOLECYSTECTOMY. Course - Treatment Treatment: SEE ORDERS. - Education/Counseling Education/Counseling: Patient, Family, Education Educated On: Treatment, Diagnosis, Needs for Follow Up ROR - XRAY XRAY Interpreted by: Radiologist XRAY Findings: REPORT DISCUSS WITH PATIENT. - Diagnosis Discharge Problem: Soft palate ulceration Laceration of throat Qualifiers: Encounter type: initial encounter Qualified Code(s): S19.89XA - Other specified injuries of other specified part of neck, initial encounter - Discharge Plan Condition: Stable Prescriptions: Amoxicillin/Potassium Clav [Augmentin 875-125 Tablet] 1 tab PO Q12H #20 tab Ondansetron HCl [Zofran Tab 4 mg] 4 mg PO Q8H PRN #15 tab PRN Reason: Nausea/Vomiting - Follow ups/Referrals Follow ups/Referrals: AYLA MARTINEZ [Primary Care Provider] - 3 days LATRELL STAFFORD [CONSULTING PHYSICIAN] - 3 days - Instructions Instructions: Laparoscopic Cholecystectomy, Care After, Mouth Laceration, Easy- to-Read Additional Instructions: RETURN TO ED IF WORSE.
[2017-07-20] MEDS ORDERED: NS 1000 ML 1,000 ML IV ONE (20:28)
[2017-07-20] MEDS ORDERED: DEMEROL INJ IVP ONE (20:28)
[2017-07-20] MEDS ORDERED: ZOFRAN INJ 4 MG VIAL IVP ONE (20:28)
[2017-07-20] MEDS ORDERED: ZOSYN VIAL 3.375 GM 3.375 GM in NS 100 ML IV + SPIKE MINIBAG* 100 ML IV ONE (20:31)
[2017-07-20] MEDS ORDERED: ZOFRAN INJ 4 MG VIAL ONE (20:34)
[2017-07-20] MEDS ORDERED: NS 1000 ML 1,000 ML ONE (20:34)
[2017-07-20] MEDS ORDERED: DEMEROL INJ ONE (20:35)
[2017-07-20] MEDS ORDERED: NS 100 ML IV + SPIKE MINIBAG* 100 ML IV ONE (20:59)
[2017-07-20] MEDS ORDERED: ZOSYN VIAL 3.375 GM IV ONE (21:00)
--- NOTE | 2017-07-20 21:25 | RAD ---
Portable chest Indication: Postop. Comparison: February 28, 2017 Impression: Lungs are hyperexpanded with chronic interstitial change suggestive of COPD. There is no edema, effus ion, pneumothorax, or focal consolidation to suggest pneumonia. Heart size is normal. No acute skelet al abnormality is seen. Cholecystectomy clips are now noted within the right upper quadrant. Reported By:
--- NOTE | 2017-07-20 21:27 | RAD ---
Soft tissue neck series, two views Indication: Throat swelling. Comparison: None available. Impression: The visualized cervical soft tissues are grossly unremarkable about significant enlargement of the ep iglottis or aryepiglottic folds. The air column of the aerodigestive tract appears patent. There is c ervical spondylosis without acute skeletal abnormality. Reported By:
== END 2017-07-20 22:37 | disposition home or self-care (01) ==
LOC: ER 18:34
DX: S19.89XA Other specified injuries of other specified part of neck, initial encounter (principal); K13.79 Other lesions of oral mucosa; Y33.XXXA Other specified events, undetermined intent, initial encounter; Y92.9 Unspecified place or not applicable
CPT/HCPCS: 70360; 71010; 96365; 96374; 96375; 99283; A4216; A4222; J0330; J1885; J2175; J2250; J2405; J2543; J2710; J3490

== ENCOUNTER → 2017-07-20 | Day surgery (SDC) | payer BC ==
[~2017-07-20] MED LIST: BENADRYL INJ 50 MG VIAL IVP PRN; DILAUDID INJ IVP PRN; FENTANYL INJ 250 mcg ONE; MARCAINE 0.25% INJ ONE; NS 1000 ML 1,000 ML ONE; PERCOCET TAB 5/325 MG ONE; PERCOCET TAB 5/325 MG PO PRN; PHENERGAN INJ 25 MG IVP PRN; REGLAN INJ 10 MG VIAL IVP PRN; XYLOCAINE 1% and EPINEPHRINE 1:100,000 ONE; ZOFRAN INJ 4 MG VIAL IVP PRN
[2017-07-20] MEDS: NS 50 ML IV + SPIKE MINIBAG* 50 ML IV ONE ×2 (08:35→08:55)
[2017-07-20] MEDS: ANCEF VIAL 1 GM ONE ×2 (08:35→08:40)
--- NOTE | 2017-07-20 10:23 | OR.GENERIC ---
Post-Op Note Generic - Post-Op Note Operative Report: Operative Report Date of Operation: July 20, 2017 Pre-Operative Diagnosis: Biliary dyskinesia. Post-Operative Diagnosis: 1. Chronic cholecystitis. 2. Biliary dyskinesia. Procedure: Laparoscopic cholecystectomy. Surgeon: Herbert Garcias MD. Industrial Engineering Intern: Viola Samuels CRNA. Specimen: Gallbladder. Estimated blood loss: Minimal. Complications: None. Summary: The patient is a 61 year old female who presented with biliary dyskinesia. The patient was offered cholecystectomy. The risk and benefits of the procedure including difficulty with anesthesia, bleeding, infection, conversion to open procedure, bile leak, hernia formation, DVT, as well as PE were discussed with the patient. The patient understood these risks and requested the procedure. On July 20, 2017, the patient was brought to the operative theatre. A time out was performed verifying the patient and procedure. The patient received Ancef for pre-operative antibiosis. After satisfactory induction of general endotracheal anesthesia, the abdomen was prepped with Chloraprep and draped in the usual sterile fashion. The skin and subcutaneous tissue at the umbilicus was anesthetized using local anesthetic. The skin was incised sharply. A 12 mm trocar was placed though the incision and into the peritoneal cavity using the Kenny technique. Carbon dioxide was infiltrated through this trocar to obtain a pneumoperitoneum of 15 mm Hg. A camera was placed through this trocar and swept in all directions. No injury was seen from entering the peritoneal cavity. A site was selected in the subxiphoid location for our 2nd trocar. The skin and fascia was anesthetized using local anesthetic. The skin was incised sharply. A 5 mm trocar was placed into the peritoneal cavity under direct visualization. In a similar manner, two additional 5 mm trocars were placed. The first was placed in the mid-clavicular line approximately 2 fingerbreadths inferior to the left costal margin and a second in the anterior axillary line approximately 2 fingerbreadths inferior to the left costal margin. The patient was placed in reverse Trendelenburg and rotated to the patients left. The gallbladder was grasped at the fundus and elevated cephalad and slightly lateral. Omental attachments were taken down using blunt dissection and electrocautery. The peritoneum on the medial and lateral aspects of the infundibulum of the gallbladder was scored using hook electrocautery. Using blunt dissection, the cystic artery and duct were isolated. The critical view of safety was obtained. Both of these structures were divided between endoclips. The gallbladder was dissected free using hook electrocautery. The gallbladder was placed in an endobag and removed through the umbilical trocar site without difficulty. The trocar and camera were placed back inside the abdomen. Our clips were noted in good position. Bleeding of the gallbladder fossa was controlled using electrocautery. At this point, the 5 mm trocars were removed under direct visualization. No bleeding was seen. The umbilical trocar was then removed and pneumoperitoneum released. The fascia at the umbilicus was closed using a 0-Vicryl placed in a figure-of- eight configuration. The skin edges at all incisions were re-approximated using inverted, interrupted 4-0 Monocryl sutures. Benzoin and Steri-strips were placed. Sterile dressings were placed. The patient was awakened and taken to the recovery room in stable condition. There were no complications. All counts were correct.
[2017-07-20 11:46] VITALS: BP 105/70
== END ==
LOC: SURG1 08:06
PROVIDERS: ATTEND Student in an Organized Health Care Education/Training Program
PROC: 0FT44ZZ Resection of Gallbladder, Percutaneous Endoscopic Approach (ICD-10-PCS; principal; 2017-07-20 08:30)
DX: K82.8 Other specified diseases of gallbladder (principal); K81.1 Chronic cholecystitis
CPT/HCPCS: A4222; S0020; J0690; J2001; J3010

== ENCOUNTER → 2017-08-28 | Outpatient (CLI) | payer BC ==
--- NOTE | 2017-08-28 16:15 | RAD ---
Examination: Left shoulder, three views History: Joint pain Comparison reference: None Findings: There is no evidence for fracture, displacement, bone destruction or periarticular calcific ation. Joint spaces are unremarkable. The humeral head is in normal position with the glenoid. Impression: No acute/significant shoulder abnormality demonstrated. Reported By:
== END ==
LOC: RAD 15:14
PROVIDERS: ATTEND Nurse Practitioner Family
DX: M25.512 Pain in left shoulder (principal)
CPT/HCPCS: 73030

== ENCOUNTER → 2017-09-12 | Outpatient (CLI) | payer BC ==
--- NOTE | 2017-09-17 12:11 | MRI ---
HISTORY: Neck pain, left radiculopathy Study: MRI cervical spine without contrast Comparison: 07/28/2015 Technique: Multi planar multi sequence noncontrast imaging Findings: The prevertebral soft tissues are normal. The vertebral body alignment and bone signal is normal. The cervical spinal cord is normal in size and configuration and without foci of abnormal signal. The di sc levels are evaluated as follows: C2-3 level: No evidence for compressive disc disease. The neural foramina are patent. C3-4 level: No evidence for compressive disc disease. The neural foramina are patent. C4-5 level: Mild disc osteophyte formation causes mild effacement of the thecal sac but no significan t canal stenosis or cord compression. The neural foramina are patent. C5-6 level. There is disc degeneration with broad-based disc osteophyte formation effacing the thecal sac and contributing to mild canal stenosis the disc bulging contributes to foraminal narrowing bila terally right greater than left. C6-7 level: There is disc degeneration with broad-based disc osteophyte formation effacing the thecal sac but not contributing to significant canal stenosis. The right neural foramen is patent. There is mild foraminal narrowing on the left. C7-T1 level no evidence for compressive disc disease. The neural foramina are patent. IMPRESSION: As above Reported By:
--- NOTE | 2017-09-19 08:54 | MG ---
HISTORY: SCREENING Comparison: July 27, 2015 and August 24, 2016 FINDINGS: Bilateral CC and MLO projections of the right and left breast were obtained utilizing both full-field and push back techniques. Heterogeneously dense fibroglandular tissue is seen to be present without significant interval change. No suspicious architectural distortion, mass or clustered microcalcifi cations can be observed to suggest malignancy. No skin thickening or nipple retraction is appreciate d. No pathological lymphadenopathy can be identified. Benign-appearing calcifications are noted wit hin the right and left breast. Bilateral subpectoral silicone implants appear grossly intact. IMPRESSION: NO RADIOGRAPHIC EVIDENCE OF MALIGNANCY. ACR CATEGORY 2 - benign findings. FOLLOW-UP EXAM 1 YEAR. Diagnostic CAD was utilized and reviewed. * 0 (ZERO) - ASSESSMENT INCOMPLETE; ADDITIONAL IMAGING IS NEEDED. * 1/1 (ONE) - NEGATIVE. * 2/II (TWO) - BENIGN FINDINGS. * 3/III (THREE) - PROBABLY BENIGN FINDING; SHORT INTERVAL FOLLOW-UP SUGGESTED. * 4/IV (FOUR) - SUSPICIOUS ABNORMALITY; BIOPSY SHOULD BE CONSIDERED. * 5/V - HIGHLY SUSPICIOUS OF MALIGNANCY; BIOPSY SHOULD BE PERFORMED. A NEGATIVE X-RAY REPORT SHOULD NOT DELAY BIOPSY IF A DOMINANT OR CLINICALLY SUSPICIOUS MASS IS PRESENT; 4 TO 8 PERCENT OF CANCERS ARE NOT IDENTIFIED BY X-RAY. A NEGA TIVE REPORT MAY REINFORCE THE CLINICAL IMPRESSION. ADENOSIS AND DENSE BREASTS MAY OBSCURE AN UNDERLY ING NEOPLASM. Reported By:
== END ==
LOC: RAD 13:18
PROVIDERS: ATTEND Nurse Practitioner Family
DX: Z12.31 Encounter for screening mammogram for malignant neoplasm of breast (principal); M54.12 Radiculopathy, cervical region
CPT/HCPCS: 72141; 77067

== ENCOUNTER → 2017-09-28 | Outpatient (CLI) | payer BC ==
--- NOTE | 2017-10-02 08:29 | MRI ---
MRI left shoulder without contrast Indication: Left shoulder pain Technique: Multiplanar, multi sequence imaging of the shoulder without IV contrast administration. Findings: The rotator cuff is intact, no atrophy tear or tendinopathy. Intra-articular long head aide ps tendon is normal in signal and position. The is superior labrum demonstrates tear with propagation of tear laterally into the biceps labral anchor seen on image 11 of series 601. The tear propagates into the posterior superior labrum. There is difficult visualization of the anterior and anterior inf erior labrum given lack of joint distention however there is increased signal between the labral and glenoid articular cartilage for example on images 11-2012 suspicious for periosteal stripping in the setting of a labral tear. The possibly of variant anatomy in the setting of a [place] complex is not e ntirely excluded as the middle glenohumeral ligament is not well visualized on this nondistended view of the left shoulder. The glenohumeral articular cartilage is normal. AC joint demonstrates mild deg enerative change. There is no mass effect on the adjacent rotator cuff. There is trace amount subacro mial, subdeltoid bursal fluid. The inferior glenohumeral ligament is normal. Impression: 1.Superior labral tear with propagation of tear laterally into the biceps labral anchor and superior posterior labrum (slap tear). There is abnormal morphology of the anterior and anterior inferior labr um with cleft of fluid between the glenoid articular cartilage and labrum suspected to represent lisa osteal stripping of a subacute/chronic labral tear. A [place] complex is not entirely excluded given t he underdistention of the joint and if surgery is performed attention in this location will be needed . 2. No rotator cuff tear or muscle belly atrophy. 3. Mild AC joint osteoarthrosis. Reported By:
== END ==
LOC: RAD 10:56
PROVIDERS: ATTEND Nurse Practitioner Family
DX: M25.512 Pain in left shoulder (principal); R20.2 Paresthesia of skin
CPT/HCPCS: 73221

== ENCOUNTER → 2018-02-11 | Outpatient (CLI) | payer BC ==
--- NOTE | 2018-02-11 11:30 | US ---
HISTORY: Frequent urination Study: Renal ultrasound: Multiplanar ultrasonographic examination of the kidneys and urinary bladde r was performed. Comparison: None Findings: On the images submitted to me the kidneys overall or of normal echogenicity and echotexture. There a re normal size bilaterally. Right kidney: 9.6 cm in length by 4.7 x 5.8 cm. There appear to be small cortical cysts versus trac e hydronephrosis/caliectasis. Left kidney: 10.3 cm in length by 5.7 x 6.0 cm. There appear to be small cortical cysts versus trac e caliectasis/hydronephrosis. Urinary bladder: As visualized is normal. IMPRESSION: 1. There is suggestion of trace caliectasis/hydronephrosis or small cortical cysts bilaterally. Thi s may be due to patient's state of hydration. 2. Otherwise, negative renal ultrasound. Reported By:
== END ==
LOC: RAD 10:24
PROVIDERS: ATTEND Urology
DX: R35.0 Frequency of micturition (principal); R39.15 Urgency of urination
CPT/HCPCS: 76770